=== PATIENT | female | born 2000 | race Caucasian/White ===

== ENCOUNTER 2021-09-22 11:53 | Emergency (ER) | payer MEDICAID, OTHER ==
[2021-09-22 13:03] VITALS: BP 99/71
[2021-09-22] MEDS ORDERED: ACET-1158 PO (14:17)
[2021-09-22] MEDS ORDERED: CLIN300C8 PO (14:17)
== END 2021-09-22 14:27 | disposition home or self-care (01) ==
LOC: ER 11:53
DX: K05.10 Chronic gingivitis, plaque induced (principal); F17.200 Nicotine dependence, unspecified, uncomplicated